=== PATIENT | female | born 1955 | race Caucasian/White ===

== ENCOUNTER → 2017-01-07 | Outpatient (CLI) | payer OTHER | END | disposition home or self-care (01) | LOC: CFH 15:49 | PROVIDERS: ATTEND Nurse Practitioner | DX: R92.2 Inconclusive mammogram (principal) | CPT/HCPCS: 76942; 88305 ==

== ENCOUNTER → 2017-01-23 | Outpatient (CLI) | payer OTHER ==
[~2017-01-23] MED LIST: CHOL100014 PO; CYAN10005 PO; LOSA1TAB17 PO; MULT-208 PO; OMEG100023 PO; OMEP-110 PO; OMNIPAQUE 350 MG/ML, 100ML BOTTLE ONE
== END | disposition home or self-care (01) ==
LOC: RAD 09:58
PROVIDERS: ATTEND Surgery
DX: K44.9 Diaphragmatic hernia without obstruction or gangrene (principal); C50.912 Malignant neoplasm of unspecified site of left female breast
CPT/HCPCS: 71260; 74177; Q9967

== ENCOUNTER 2017-01-24 09:41 | Day surgery (SDC) | payer OTHER ==
[~2017-01-24] VITALS: Ht 160 cm; Wt 103.9 kg
[2017-01-24] MEDS ORDERED: LACTATED RINGERS 1,000 ML IV SCH (10:02)
[2017-01-24 10:12] VITALS: BP 161/98
[2017-01-24] MEDS ORDERED: CYAN10005 PO (10:13)
[2017-01-24] MEDS ORDERED: OMEP-110 PO (10:13)
[2017-01-24] MEDS ORDERED: CHOL100014 PO (10:13)
[2017-01-24] MEDS ORDERED: OMEG100023 PO (10:13)
[2017-01-24] MEDS ORDERED: LOSA1TAB17 PO (10:13)
[2017-01-24] MEDS ORDERED: MULT-208 PO (10:13)
[2017-01-24 10:26] VITALS: BP 161/98
[2017-01-24] MEDS ORDERED: HEPARIN 1,000 UNITS/ML, 10ML ONE (10:41)
[2017-01-24] MEDS ORDERED: HEPARIN 5,000 UNITS/ML, 1ML ONE (10:41)
[2017-01-24] MEDS ORDERED: BUPIVACAINE/PF 0.5% ONE (10:41)
[2017-01-24] MEDS ORDERED: FENTANYL PF 100 MCG/2ML ONE (10:55)
[2017-01-24] MEDS ORDERED: MIDAZOLAM 1 MG/ML, 2ML ONE (10:55)
[2017-01-24] MEDS ORDERED: LABETALOL 5MG/ML, 20ML IV PRN (11:00)
[2017-01-24] MEDS ORDERED: HYDROcodone/APAP 7.5-325MG/15ML UDC PO PRN (11:00)
[2017-01-24] MEDS ORDERED: OXYcodone 5 MG/5 ML ORAL.SOL UDC PO PRN (11:00)
[2017-01-24] MEDS ORDERED: ACETAMINOPHEN 325 MG TABLET PO PRN (11:00)
[2017-01-24] MEDS ORDERED: METOPROLOL 1 MG/ML, 5ML IV PRN (11:00)
[2017-01-24] MEDS ORDERED: HYDROmorphone 1 MG/ML, 1ML IV PRN (11:00)
[2017-01-24] MEDS ORDERED: FENTANYL PF 100 MCG/2ML IV PRN (11:00)
[2017-01-24] MEDS ORDERED: ALBUTEROL SULFATE 2.5 MG/3 ML NPPB PRN (11:00)
[2017-01-24] MEDS ORDERED: ONDANSETRON 2MG/ML, 2ML IVPush PRN (11:00)
[2017-01-24] MEDS ORDERED: PROMETHAZINE 25 MG/ML, 1ML IV PRN (11:00)
[2017-01-24] MEDS ORDERED: METOCLOPRAMIDE 5 MG/ML, 2ML IV PRN (11:00)
[2017-01-24] MEDS ORDERED: hydrALAzine 20 MG/ML, 1ML IV PRN (11:00)
[2017-01-24] MEDS ORDERED: KETOROLAC 30 MG/1 ML IV PRN (11:00)
[2017-01-24] MEDS ORDERED: SUCCINYLCHOLINE 20 MG/ML, 10ML ONE (11:49)
[2017-01-24] MEDS ORDERED: PROPOFOL 10 MG/ML, 20ML ONE (11:49)
[2017-01-24] MEDS ORDERED: ROCURONIUM 10 MG/ML ONE (11:49)
[2017-01-24] MEDS ORDERED: ONDANSETRON 2MG/ML, 2ML ONE ×2 (11:49→12:43)
[2017-01-24] MEDS ORDERED: CEFAZOLIN 1,000 MG ONE (11:49)
[2017-01-24] MEDS ORDERED: OXYcodone 5 MG/5 ML ORAL.SOL UDC ONE (12:37)
[2017-01-24] MEDS ORDERED: ACETAMINOPHEN 650 MG/20.3 ML UDC ONE (12:37)
== END 2017-01-24 14:30 | disposition home or self-care (01) ==
LOC: OUT 09:41
PROVIDERS: ATTEND Surgery
DX: Z45.2 Encounter for adjustment and management of vascular access device (principal); C50.912 Malignant neoplasm of unspecified site of left female breast; I10 Essential (primary) hypertension; K21.9 Gastro-esophageal reflux disease without esophagitis; E66.9 Obesity, unspecified; Z68.41 Body mass index [BMI] 40.0-44.9, adult
CPT/HCPCS: 36561; 71010; 77001; C1788; J0330; J0690; J1644; J2250; J2405; J2704; J3010; J3490; J7120

== ENCOUNTER → 2017-02-04 | Outpatient (CLI) | payer OTHER ==
[~2017-02-04] MED LIST changes: -OMNIPAQUE 350 MG/ML, 100ML BOTTLE ONE
== END | disposition home or self-care (01) ==
LOC: CFH 14:24
PROVIDERS: ATTEND Internal Medicine Hematology & Oncology
DX: I07.1 Rheumatic tricuspid insufficiency (principal); I37.1 Nonrheumatic pulmonary valve insufficiency; C50.112 Malignant neoplasm of central portion of left female breast
CPT/HCPCS: 93306

== ENCOUNTER → 2017-02-05 | Outpatient (CLI) | payer OTHER ==
[~2017-02-05] MED LIST changes: +GADOBUTROL 10 MMOL/10 ML VIAL ONE
== END | disposition home or self-care (01) ==
LOC: CFH 11:44
PROVIDERS: ATTEND Internal Medicine Hematology & Oncology
DX: C50.112 Malignant neoplasm of central portion of left female breast (principal)
CPT/HCPCS: A9585; C8908

== ENCOUNTER → 2017-04-11 | Outpatient (CLI) | payer OTHER ==
[~2017-04-11] MED LIST changes: -GADOBUTROL 10 MMOL/10 ML VIAL ONE; -LOSA1TAB17 PO; +LOSA1TAB22 PO
[2017-04-11 08:47] LABS: ASPARTATE AMINO TRANSFERASE 18 U/L (15-37); BLOOD UREA NITROGEN 20 mg/dL (7-18)
== END | disposition home or self-care (01) ==
LOC: LAB 08:21
PROVIDERS: ATTEND Internal Medicine Hematology & Oncology
DX: Z51.11 Encounter for antineoplastic chemotherapy (principal); Z51.12 Encounter for antineoplastic immunotherapy; C50.112 Malignant neoplasm of central portion of left female breast; D70.1 Agranulocytosis secondary to cancer chemotherapy
CPT/HCPCS: 36415; 80053; 83735

== ENCOUNTER → 2017-04-26 | Outpatient (CLI) | payer OTHER | END | disposition home or self-care (01) | LOC: CVU 08:04 | PROVIDERS: ATTEND Internal Medicine Hematology & Oncology | DX: I07.1 Rheumatic tricuspid insufficiency (principal); C50.112 Malignant neoplasm of central portion of left female breast | CPT/HCPCS: 93306 ==

== ENCOUNTER → 2017-05-13 | Outpatient (CLI) | payer OTHER | END | disposition home or self-care (01) | LOC: CFH 13:05 | PROVIDERS: ATTEND Internal Medicine Hematology & Oncology | DX: C50.112 Malignant neoplasm of central portion of left female breast (principal) ==

== ENCOUNTER 2017-06-06 08:54 | Day surgery (SDC) | payer OTHER ==
[2017-06-05 09:01] VITALS: BP 163/99
[2017-06-05 09:54] LABS: CALCIUM 8.8 mg/dL (8.5-10.1); CHLORIDE 109 mmol/L (98-107)
[2017-06-05 10:00] LABS: ALANINE AMINOTRANSFERASE 26 U/L (12-78); ALBUMIN 3.3 g/dL (3.4-5.0); ALKALINE PHOSPHATASE 77 U/L (45-117); ANION GAP 7 mmol/L (5-15); BILIRUBIN,TOTAL 0.3 mg/dL (0.2-1.0); CREATININE 0.57 mg/dL (0.55-1.02)
[~2017-06-06] VITALS: Ht 160 cm; Wt 85.7 kg
[~2017-06-06 08:54] MED LIST changes: +HYDR25TA6 PO
[2017-06-06] MEDS ORDERED: LACTATED RINGERS 1,000 ML IV SCH (10:00)
[2017-06-06] MEDS ORDERED: LIDOCAINE 1%, 2ML SQ PRN (10:00)
[2017-06-06] MEDS ORDERED: morphine SULFATE 10 MG/ML, 1ML IV PRN (11:30)
[2017-06-06] MEDS ORDERED: MEPERIDINE/PF 25MG/0.5ML IVPush PRN (11:30)
[2017-06-06] MEDS ORDERED: HYDROmorphone 1 MG/ML, 1ML IV PRN (11:30)
[2017-06-06] MEDS ORDERED: ACETAMINOPHEN 325 MG TABLET PO PRN (11:30)
[2017-06-06] MEDS ORDERED: HYDROcodone/APAP 7.5-325MG/15ML UDC PO PRN (11:30)
[2017-06-06] MEDS ORDERED: ONDANSETRON 2MG/ML, 2ML IVPush PRN (11:30)
[2017-06-06] MEDS ORDERED: LABETALOL 5MG/ML, 20ML IV PRN (11:30)
[2017-06-06] MEDS ORDERED: KETOROLAC 30 MG/1 ML IV PRN (11:30)
[2017-06-06] MEDS ORDERED: hydrALAzine 20 MG/ML, 1ML IV PRN (11:30)
[2017-06-06] MEDS ORDERED: ALBUTEROL SULFATE 2.5 MG/3 ML NPPB PRN (11:30)
[2017-06-06] MEDS ORDERED: MIDAZOLAM 1 MG/ML, 2ML IV PRN (11:30)
[2017-06-06] MEDS ORDERED: METOCLOPRAMIDE 5 MG/ML, 2ML IV PRN (11:30)
[2017-06-06] MEDS ORDERED: FENTANYL PF 100 MCG/2ML IV PRN (11:30)
[2017-06-06] MEDS ORDERED: OXYcodone 5 MG/5 ML ORAL.SOL UDC PO PRN (11:30)
[2017-06-06] MEDS ORDERED: EPINEPHRINE 1 MG/ML, 1ML ONE (11:53)
[2017-06-06] MEDS ORDERED: BUPIVACAINE/PF 0.5% ONE (11:53)
[2017-06-06] MEDS ORDERED: ISOSULFAN BLUE 10 MG/ML, 5ML IV ONE (11:53)
[2017-06-06] MEDS ORDERED: MAGNESIUM SULFATE 1 GM/2 ML ONE (11:59)
[2017-06-06] MEDS ORDERED: LIDOCAINE-MPF 2% ,5ML ONE ×2 (11:59→12:14)
[2017-06-06] MEDS ORDERED: SCOPOLAMINE PATCH, 1.5MG PATCH.TD72 TD ONE (12:00)
[2017-06-06] MEDS ORDERED: METOCLOPRAMIDE 5 MG/ML, 2ML ONE (12:14)
[2017-06-06] MEDS ORDERED: CEFAZOLIN 1,000 MG ONE (12:14)
[2017-06-06] MEDS ORDERED: MIDAZOLAM 1 MG/ML, 2ML ONE (12:14)
[2017-06-06] MEDS ORDERED: ROCURONIUM 10 MG/ML,10ML ONE (12:14)
[2017-06-06] MEDS ORDERED: DEXAMETHASONE 4 MG/ML, 1ML ONE ×2 (12:14)
[2017-06-06] MEDS ORDERED: PROPOFOL 10 MG/ML, 20ML ONE ×2 (12:14)
[2017-06-06] MEDS ORDERED: ONDANSETRON 2MG/ML, 2ML ONE (12:14)
[2017-06-06] MEDS ORDERED: GLYCOPYRROLATE 0.2MG/1ML, 5ML ONE (12:14)
[2017-06-06] MEDS ORDERED: FENTANYL PF 100 MCG/2ML ONE ×2 (12:14)
[2017-06-06] MEDS ORDERED: BUPIVACAINE/PF 0.5% INFIL ONE (13:04)
[2017-06-06] MEDS ORDERED: HYDROcodone/APAP 7.5-325MG/15ML UDC ONE (14:13)
== END 2017-06-06 17:15 | disposition home or self-care (01) ==
LOC: OUT 08:54 → EDSTATUS 12:00 → OUT 17:15
PROVIDERS: ATTEND Surgery
DX: C50.912 Malignant neoplasm of unspecified site of left female breast (principal); I10 Essential (primary) hypertension; K21.9 Gastro-esophageal reflux disease without esophagitis; E66.9 Obesity, unspecified; Z68.33 Body mass index [BMI] 33.0-33.9, adult; Z98.890 Other specified postprocedural states; Z72.89 Other problems related to lifestyle
CPT/HCPCS: 19301; 36415; 38525; 38792; 80053; 88307; 88329; 88333; 88334; A9541; C9898; J0171; J0690; J1100; J2250; J2405; J2704; J2765; J3010; J3475; J3490; J7120

== ENCOUNTER → 2017-06-17 | Outpatient (CLI) | payer OTHER | END | disposition home or self-care (01) | LOC: ROC 08:47 | PROVIDERS: ATTEND Radiology Radiation Oncology | DX: N63.20 Unspecified lump in the left breast, unspecified quadrant (principal); I10 Essential (primary) hypertension; K21.9 Gastro-esophageal reflux disease without esophagitis; Z85.3 Personal history of malignant neoplasm of breast | CPT/HCPCS: 99214; G0463 ==

== ENCOUNTER → 2017-07-10 | Outpatient (CLI) | payer OTHER | END | disposition home or self-care (01) | LOC: CFH 08:46 | PROVIDERS: ATTEND Internal Medicine Hematology & Oncology | DX: Z13.820 Encounter for screening for osteoporosis (principal); M85.88 Other specified disorders of bone density and structure, other site; C50.112 Malignant neoplasm of central portion of left female breast | CPT/HCPCS: 77080 ==

== ENCOUNTER → 2017-08-22 | Outpatient (CLI) | payer OTHER | END | disposition home or self-care (01) | LOC: CVU 14:32 | PROVIDERS: ATTEND Internal Medicine Hematology & Oncology | DX: I07.1 Rheumatic tricuspid insufficiency (principal); C50.112 Malignant neoplasm of central portion of left female breast; Z92.21 Personal history of antineoplastic chemotherapy; Z92.3 Personal history of irradiation | CPT/HCPCS: 93306 ==

== ENCOUNTER → 2017-08-29 | Outpatient (CLI) | payer OTHER | LOC: ROC 07:46 | PROVIDERS: ATTEND Radiology Radiation Oncology | DX: C50.112 Malignant neoplasm of central portion of left female breast (principal); Z85.3 Personal history of malignant neoplasm of breast; Z17.0 Estrogen receptor positive status [ER+]; Z92.3 Personal history of irradiation | CPT/HCPCS: 99213; G0463 ==

== ENCOUNTER → 2017-12-17 | Outpatient (CLI) | payer OTHER ==
[~2017-12-17] MED LIST changes: +ALEN35TA6 PO
== END | disposition home or self-care (01) ==
LOC: CVU 07:34
PROVIDERS: ATTEND Internal Medicine Hematology & Oncology
DX: I07.1 Rheumatic tricuspid insufficiency (principal); C50.112 Malignant neoplasm of central portion of left female breast; Z92.3 Personal history of irradiation
CPT/HCPCS: 93306

== ENCOUNTER → 2018-01-09 | Outpatient (CLI) | payer OTHER | END | disposition home or self-care (01) | LOC: CFH 07:25 | PROVIDERS: ATTEND Internal Medicine Hematology & Oncology | DX: Z12.31 Encounter for screening mammogram for malignant neoplasm of breast (principal); Z85.3 Personal history of malignant neoplasm of breast | CPT/HCPCS: 77067 ==